=== PATIENT | male | born 1955 ===

== ENCOUNTER → 2022-01-27 | Outpatient (CLI) | payer MEDICARE ==
[2022-01-27 14:06] LABS: Creatinine, Urine Random 81.1 mg/dL (27.00-270.00)
[2022-01-27 14:10] LABS: Microalb/Creat Ratio UR, Rand 1078.91 mg/g (0.000-30.000)
== END ==
LOC: LAB SHORT 07:30 → LAB 07:30
PROVIDERS: Nurse Practitioner Family
DX: E11.9 Type 2 diabetes mellitus without complications (principal)
CPT/HCPCS: 36415; 82043; 82570